=== PATIENT | female | born 1965 | race African-American/Black ===

== ENCOUNTER 2017-04-21 17:17 | Emergency (ER) | payer SELFPAY, OTHER | END 2017-04-21 21:41 | disposition left against medical advice (07) | LOC: FTE 17:17 | DX: Z53.21 Procedure and treatment not carried out due to patient leaving prior to being seen by health care provider (principal) ==

== ENCOUNTER 2018-06-25 13:54 | Emergency (ER) | payer BC | END 2018-06-25 16:19 | disposition home or self-care (01) | LOC: FTE 13:54 | DX: S09.90XA Unspecified injury of head, initial encounter (principal); W22.8XXA Striking against or struck by other objects, initial encounter; Y92.009 Unspecified place in unspecified non-institutional (private) residence as the place of occurrence of the external cause | CPT/HCPCS: 99283 ==